=== PATIENT | female | born 1965 | race Caucasian/White ===

== ENCOUNTER → 2017-03-23 | Outpatient (CLI) | payer OTHER | LOC: LAB.O 09:28 | PROVIDERS: ATTEND Nurse Practitioner Family | DX: R73.9 Hyperglycemia, unspecified (principal) ==

== ENCOUNTER → 2017-03-27 | Outpatient (CLI) | payer OTHER ==
--- NOTE | 2017-03-27 11:45 | CT ---
EXAM DESCRIPTION: Chest w/Contrast CLINICAL HISTORY: 51 years, Female, PULMONARY NODULE abnormal chest x-ray COMPARISON: Chest examination March 16, 2017 TECHNIQUE: Thin-section axial CT images are obtained during rapid bolus administration of nonionic IV contrast media. Reconstructed MPR images are created and reviewed as well. This exam was performed according to our departmental dose-optimization program, which includes automated exposure control, adjustment of the mA and/or kV according to patient size and/or use of iterative reconstruction technique. FINDINGS: The lung yeager are clear and no pulmonary nodule is identified anteriorly within either the right or left chest and corresponding to the plain film abnormality. Dense calcification in the left axillary region is noted and presumably represents old granulomatous alden calcification but does not appear to be in the expected location of the nodular density seen on plain film of the chest. The entirety of the soft tissues of the overlying anterior chest wall and breast were not imaged and a dense benign calcification in this location may be present. Minor atelectasis or linear scarring in each lung is evident and unrelated to the nodularity seen on plain film examination. The thoracic inlet and superior mediastinum as well as the middle mediastinum and hilar structures are normal. Marked fatty infiltration of the liver is present. A small normal spleen is present. IMPRESSION: 1. No pulmonary mass in the anterior aspect of either the right or left lung or abnormal calcification is noted within the lung yeager and presumably the nodular density seen radiographically represents a soft tissue calcification that is not clearly identified on current CT examination. 2. Granulomatous calcifications in the left axillary region these do not appear to be properly position to account for the radiographic abnormality. 3. No further follow-up of the chest is noted with only mild atelectatic or scarring changes in each lung evident without worrisome nodularity. No abnormal adenopathy is seen. Electronically signed by: Spenser Reddy MD 03/27/2017 11:43 AM CDT
== END | disposition home or self-care (01) ==
LOC: CT 07:51
PROVIDERS: ATTEND Nurse Practitioner Family
DX: R91.1 Solitary pulmonary nodule (principal)

== ENCOUNTER → 2017-04-03 | Outpatient (CLI) | payer OTHER ==
--- NOTE | 2017-04-04 08:55 | RAD ---
EXAM DESCRIPTION: Hip,Left 2 Views CLINICAL HISTORY: 51 years, Female, HIP PAIN COMPARISON: None. FINDINGS: The superior aspect of the joint spaces completely lost with irregularity of the femoral head and subchondral cystic change and spurring. Suspect that this may be related to chronic impingement syndrome as there is slight deformity of lateral femoral head neck junction. No fracture. IMPRESSION: Deformed femoral head with loss of the superior lateral aspect of the joint space. Spurring and subchondral cystic change. Suspect that this is related to chronic impingement syndrome, but prior trauma is also in differential diagnosis Electronically signed by: Xander Vasquez MD 04/04/2017 8:55 AM CDT
--- NOTE | 2017-04-04 08:56 | RAD ---
EXAM DESCRIPTION: Pelvis CLINICAL HISTORY: 51 years, Female, HIP PAIN COMPARISON: None. FINDINGS: No fracture. Pelvic ring intact. Severe deformity of the left hip with subchondral cystic change and spurring suggests prior trauma or chronic impingement. Right hip shows mild degenerative changes. Mild sacroiliac degenerative degenerative change more on the left. IMPRESSION: No fracture. Severe deformity of the left hip, chronic in appearance. Suspect impingement syndrome or prior trauma Electronically signed by: Xander Vasquez MD 04/04/2017 8:56 AM CDT
== END | disposition home or self-care (01) ==
LOC: RAD 13:05
PROVIDERS: ATTEND Orthopaedic Surgery
DX: M16.12 Unilateral primary osteoarthritis, left hip (principal)

== ENCOUNTER 2017-04-11 05:39 | Inpatient (IN) | payer OTHER ==
--- NOTE | 2017-03-16 11:13 | RAD ---
EXAM DESCRIPTION: Chest,2 Views CLINICAL HISTORY: Preoperative respiratory evaluation. Z01.811 FINDINGS/ IMPRESSION: Normal cardiomediastinal silhouette. Lung volumes are slightly low likely from shallow inspiration. A nodular density projects over the heart in the lateral projection. Well-circumscribed 8 mm nodular density not seen in the frontal projection. Because of overlap not certain if this is calcified or noncalcified. Recommend comparison to any prior radiographs. If none available, chest CT to better characterize and exclude neoplastic nodule The lungs are otherwise clear Electronically signed by: Spenser Neal MD 03/16/2017 11:06 AM CDT
--- NOTE | 2017-04-04 08:57 | HP ---
CHIEF COMPLAINT: Left hip pain. HISTORY OF PRESENT ILLNESS: Gloria is a 51-year-old female with a history of severe hip pain that has been going on and getting progressively worse over the course of the past several years. She has had no direct trauma related to the onset. She denies any radiation of pain and denies any neurologic symptoms. She has severe arthritis. Because of her severe arthritis and ongoing pain, she has requested operative intervention. After discussing the risks, benefits and alternatives to that, the patient has given informed consent for total hip arthroplasty. PAST SURGICAL HISTORY: None. MEDICATIONS: 1. Lisinopril. 2. Gabapentin. 3. Levothyroxine. ALLERGIES: NO KNOWN DRUG ALLERGIES. CODE STATUS: Full code. IMMUNIZATIONS: Up to date. SOCIAL HISTORY: The patient does not drink, smoke or use any illicit drugs. FAMILY HISTORY: None pertinent to today's complaint. REVIEW OF SYSTEMS: Negative except as indicated in the History of Present Illness. PHYSICAL EXAMINATION: VITAL SIGNS: Blood pressure 156/88. Pulse 66. Height 5'8". Weight 268. MENTAL STATUS: The patient is awake, alert, and is able to give a good history and participate in the physical. The patient is oriented to person, place and time. SKIN: Normal tone and turgor. HEENT: Normocephalic, atraumatic. Pupils equal, round and reactive. Mucosal membranes are moist. NECK: Normal range of motion. No thyromegaly, no lymphadenopathy. CHEST: Normal respiratory excursion. CARDIAC: Regular rate and rhythm. No murmurs, rubs or gallops. MUSCULOSKELETAL: The bilateral upper extremities show no evidence of significant pain with range of motion. She maintains full range of motion, 5/5 strength, and intact sensation. There is no crepitus or deformity. The right lower extremity shows full range of motion of the hip and knee without any significant discomfort. Sensation is intact and it is warm and well perfused. Strength is 5/5. The left lower extremity shows severe pain with any attempted range of motion in internal rotation. External rotation is about 10 degrees. She flexes to about 90 degrees at the hip. She has obligate external rotation and walks with a severely antalgic gait. IMAGING: X-rays show severe arthritis of the hip. ASSESSMENT: 1. Osteoarthritis of the hip. PLAN: The plan at this point is for total hip arthroplasty. We have discussed the risks, benefits, and alternatives to that and the patient has given informed consent. [facility][id number] [facility]
[2017-04-11] MEDS ORDERED: VANCOMYCIN HCL INJ 1,000 MG VIAL IVPB ONE ×4 (05:52→19:29)
[2017-04-11] MEDS ORDERED: ceFAZolin SODIUM 1 GM VIAL ONE ×4 (05:52→19:23)
[2017-04-11] MEDS ORDERED: LACTATED RINGERS 1,000 ML ONE ×2 (05:52→06:17)
[2017-04-11] MEDS ORDERED: TRANEXAMIC ACID 1,000 MG/10 ML VIAL ONE ×2 (05:52→05:53)
[2017-04-11] MEDS ORDERED: SODIUM CHL 0.9% 100ML MINI-BAG 200 ML IVPB ONE (05:52)
[2017-04-11] MEDS ORDERED: SODIUM CHLORIDE 0.9% 250ML 250 ML ONE ×3 (05:53→19:29)
[2017-04-11] MEDS ORDERED: MIDAZOLAM INJ 5 MG/5 ML VIAL ONE (06:17)
[2017-04-11] MEDS ORDERED: ROCURONIUM BROMIDE 10 MG/ML VIAL ONE (06:18)
[2017-04-11] MEDS ORDERED: MORPHINE SULF *EPIDURAL* 1 MG/ML VIAL ONE (06:18)
[2017-04-11] MEDS ORDERED: BUPIVACAINE 0.25% W/EPI 50 ML VIAL INJ ONE (06:39)
[2017-04-11] MEDS ORDERED: ZOLPIDEM TARTRATE 5 MG TAB PO PRN (07:31)
[2017-04-11] MEDS ORDERED: ACETAMINOPHEN 325 MG TAB PO PRN (07:31)
[2017-04-11] MEDS ORDERED: PROMETHAZINE HCL INJ 12.5 MG in SODIUM CHLORIDE 0.9% 50ML 50 ML IVPB PRN (07:31)
[2017-04-11] MEDS ORDERED: ACETAMINOPHEN 500 MG TAB PO PRN (07:31)
[2017-04-11] MEDS ORDERED: ONDANSETRON INJ 4 MG/2 ML VIAL IV PRN (07:31)
[2017-04-11] MEDS ORDERED: HYDROcodone 5MG/APAP 325MG 1 EA TAB PO PRN (07:31)
[2017-04-11] MEDS ORDERED: MAGNESIUM HYDROXIDE 30 ML UD PO PRN (07:31)
[2017-04-11] MEDS ORDERED: NALOXONE HCL INJ 0.4 MG/ML VIAL IV PRN (07:31)
[2017-04-11] MEDS ORDERED: ALUMINUM & MAGNESIUM HYDROXIDE 30 ML UD PO PRN (07:31)
[2017-04-11] MEDS ORDERED: DEX 5% W/NACL 0.45% 1000ML 1,000 ML IVS PRN (07:31)
[2017-04-11] MEDS ORDERED: MORPHINE SULFATE INJ 10 MG/ML VIAL IM PRN (07:31)
[2017-04-11] MEDS ORDERED: MORPHINE SULFATE INJ 10 MG/ML VIAL IV PRN (07:31)
[2017-04-11] MEDS ORDERED: SODIUM CHLORIDE 0.9% (FLUSH) 10 ML SYG IV PRN (07:31)
[2017-04-11] MEDS ORDERED: BENZOCAINE-MENTH LOZ (CEPACOL) 1 EA LOZ MT PRN (07:31)
[2017-04-11] MEDS ORDERED: TEMAZEPAM 15 MG CAP PO PRN (07:31)
[2017-04-11] MEDS ORDERED: TRANEXAMIC ACID INJ 1,000 MG in SODIUM CHLORIDE 0.9% 100ML 100 ML IVPB ONE (07:31)
[2017-04-11] MEDS ORDERED: BISACODYL SUPPOSITORY 10 MG PR PRN (07:31)
[2017-04-11] MEDS ORDERED: PROMETHAZINE HCL INJ 25 MG in SODIUM CHLORIDE 0.9% 50ML 50 ML IVPB PRN (07:31)
[2017-04-11] MEDS ORDERED: MORPHINE PCA 1 MG/ML 100 ML BAG IVPB ONE (09:47)
[2017-04-11] MEDS: MORPHINE PCA 1 MG/ML 100ML 1 BAG in PREMIX BAG 1 BAG IVPB SCH (10:30)
[2017-04-11] MEDS: IV SET AND CAP CHANGE INJ INJ SCH (11:30)
[2017-04-11] MEDS ORDERED: NEOSTIGMINE METHYLSULFATE 1 MG/ML ML IV ONE (12:00)
[2017-04-11] MEDS ORDERED: LIDOCAINE 1% 10 ML VIAL INJ ONE (12:00)
[2017-04-11] MEDS ORDERED: PROPOFOL 200 MG/20 ML VIAL IV ONE (12:00)
[2017-04-11] MEDS ORDERED: ATROPINE SULFATE 0.4 MG/ML 1ML VIAL IV ONE (12:00)
--- NOTE | 2017-04-11 13:12 | RAD ---
EXAM DESCRIPTION: Pelvis CLINICAL HISTORY: 51 years Female, postop left hip replacement COMPARISON: None. FINDINGS: Three portable views of the pelvis/left hip show bipolar hip prosthesis in excellent position. No complicating postop process is observed. IMPRESSION: Postop-no complication observed Electronically signed by: Dejon Hargrove MD 04/11/2017 1:12 PM CDT
--- NOTE | 2017-04-11 13:31 | RAD ---
Procedure: XR HIP 2 OR MORE VIEWS Exam Date: 04/11/2017 7:34 AM CDT Ordering Provider: JACK LINTON MD Clinical Indication: post op Comparison: None FINDINGS: Status post left total hip arthroplasty without evidence of complication. No periprosthetic fracture or dislocation. No soft tissue abnormality. Impression: 1. Post recent left KARINA without complication. Electronically signed by: Franklyn Rosenthal MD 04/11/2017 1:31 PM CDT
[2017-04-11] MEDS: SODIUM CHLORIDE 0.45% 1000ML 1,000 ML IVS PRN (13:44)
[2017-04-11] MEDS: HYDROcodone 10MG/APAP 325MG 1 EA TAB PO PRN ×2 (14:04→22:12)
[2017-04-11] MEDS: MAGNESIUM OXIDE 400 MG TAB PO SCH (15:57)
[2017-04-11] MEDS ORDERED: SODIUM CHLORIDE 0.9% 100ML 100 ML IVPB ONE ×2 (16:28→19:23)
[2017-04-11] MEDS: ceFAZolin SODIUM 2 GM in SODIUM CHLORIDE 0.9% 100ML 100 ML IVPB SCH ×2 (16:32→23:33)
[2017-04-11] MEDS: VANCOMYCIN HCL INJ 1,000 MG in SODIUM CHLORIDE 0.9% 250ML 250 ML IVPB SCH (18:15)
[2017-04-11] MEDS ORDERED: DEXTROSE 50% 25 GM/50 ML SYG IV PRN (18:20)
[2017-04-11] MEDS ORDERED: GLUCAGON INJ 1 MG VIAL SUBCU PRN (18:20)
[2017-04-11] MEDS ORDERED: NICOTINE PATCH 21 MG TD SCH (18:30)
--- NOTE | 2017-04-11 19:17 | CONS ---
DATE OF CONSULTATION: 04/11/17 SUPERVISING PHYSICIAN: Spenser Franco M.D. CHIEF COMPLAINT: Left hip pain. HISTORY OF PRESENT ILLNESS: This is a 51 year-old female patient who was admitted this morning for left hip replacement. She has a 4+ year history of severe hip pain and it has progressively worsened. She has had no trauma to that leg but because of the severity of her arthritis and ongoing pain, she requested operative intervention per Dr. Kb Mercer, orthopedic surgeon. Her surgery was completed this morning and I am seeing her in the postoperative phase. She progressed through her surgery without any complications. Earlier today after being admitted to the floor, she did have some pain issues but after giving her some morphine and starting her on her [place], her pain is much better controlled at this point. PAST MEDICAL HISTORY: 1. Hypertension. 2. Left hip pain. 3. Hypothyroidism. 4. Diabetes mellitus type 2. 5. Gastroesophageal reflux disease. 6. Diabetic neuropathy to the lower extremities. PAST SURGICAL HISTORY: 1. Hysterectomy. 2. Umbilical hernia repair. OUTPATIENT MEDICATIONS: Per the EMR and awaiting verification. ALLERGIES: NO KNOWN DRUG ALLERGIES. FAMILY HISTORY: SOCIAL HISTORY: She is not . She works at [employer] in [place]. She has 3 children. She smokes about 1/2 to 3/4 pack of cigarettes per day. She denies any ETOH or illicit drug use. REVIEW OF SYSTEMS: Negative except as per the History of Present Illness. PHYSICAL EXAMINATION: VITAL SIGNS: She is afebrile, heart rate 80, blood pressure 127/81, respiratory rate 16, O2 sat is 96%. GENERAL: This is a 51 year-old female patient who is lying in her hospital bed. She is in no acute distress. HEENT: Normocephalic and atraumatic. Pupils are equal and reactive. Oropharynx is clear. NECK: Supple without mass. CHEST: Essentially clear to auscultation bilaterally. HEART: Regular rate and rhythm. ABDOMEN: Soft, nondistended, non-tender. Bowel sounds are positive. EXTREMITIES: No cyanosis, clubbing or edema. Pedal pulses are palpable at +2 bilaterally. The dressing to her left lateral hip is dry and intact. NEUROLOGIC: She is awake, alert and oriented times three. LABORATORY AND RADIOLOGY: There are no labs or films to report today, except for her postsurgical radiology reports and they are as per the EMR. ASSESSMENT: 1. Left hip replacement postoperative day zero as per surgical intervention per Dr. Kb Mercer, orthopedic surgeon. 2. Osteoarthritis. 3. Hypertension. 4. Diabetes mellitus type 2. 5. Hypothyroidism. 6. Gastroesophageal reflux disease. 7. Chronic tobacco abuse. PLAN: We will continue present supportive care. Will leave orthopedic issues per Dr. Mercer. She will begin her physical therapy tomorrow for strengthening and conditioning. I have added a nicotine patch as well as started sliding scale insulin with Accu Cheks a.c. and h.s. We will continue to monitor her closely and followup as needed. Dr. Franco is the collaborating physician and available for consultation. #[id number] [facility]
[2017-04-11] MEDS ORDERED: diphenhydrAMINE HCL 25 MG CAP PO ONE (19:20)
[2017-04-11] MEDS ORDERED: ENOXAPARIN SODIUM 30 MG/0.3 ML SYG SUBCU ONE (19:29)
[2017-04-11] MEDS ORDERED: DOCUSATE CALCIUM 240 MG CAP ONE (19:29)
[2017-04-11] MEDS: DOCUSATE CALCIUM 240 MG CAP PO SCH (20:13)
[2017-04-11] MEDS: GABAPENTIN 300 MG CAP PO SCH (20:13)
[2017-04-11] MEDS: INSULIN LISPRO 100 UNITS/ML PEN SUBCU SCH (20:50)
[2017-04-11] MEDS: ENOXAPARIN SODIUM 30 MG/0.3 ML SYG SUBCU SCH (22:12)
[2017-04-11] MEDS: CYCLOBENZAPRINE HCL 10 MG TAB PO PRN (22:12)
[2017-04-12] MEDS: VANCOMYCIN HCL INJ 1,000 MG in SODIUM CHLORIDE 0.9% 250ML 250 ML IVPB SCH (06:15)
[2017-04-12] MEDS: LEVOTHYROXINE SODIUM 0.112 MG TAB PO SCH (06:15)
[2017-04-12] MEDS ORDERED: SODIUM CHLORIDE 0.9% 100ML 100 ML IVPB ONE (07:44)
[2017-04-12] MEDS ORDERED: ceFAZolin SODIUM 1 GM VIAL ONE (07:44)
[2017-04-12] MEDS ORDERED: LISINOPRIL 10 MG TAB ONE (07:47)
[2017-04-12] MEDS ORDERED: metFORMIN XR 500 MG TAB.ER.24 PO ONE (07:47)
--- NOTE | 2017-04-12 08:12 | PN ---
DATE: 04/11/17 POSTOPERATIVE CHECK SUBJECTIVE: Ms. Richter is doing well. Her pain seems to be pretty well controlled , especially for not being able to have a spinal. OBJECTIVE: Afebrile. Vital signs stable. Dressing is clean, dry and intact. ASSESSMENT: Status post total hip arthroplasty. PLAN: The plan at this point is for her to begin partial weight-bearing on postoperative day 1. #[id number] [facility]TDD
[2017-04-12] MEDS: ceFAZolin SODIUM 2 GM in SODIUM CHLORIDE 0.9% 100ML 100 ML IVPB SCH (08:30)
--- NOTE | 2017-04-12 08:33 | OP ---
DATE OF PROCEDURE: 04/11/17 PREOPERATIVE DIAGNOSIS: 1. Left hip osteoarthritis. POSTOPERATIVE DIAGNOSIS: 1. Left hip osteoarthritis. PROCEDURE: 1. Left total hip arthroplasty. SURGEON: Kb Mercer MD. HANGAR ATTENDANT: James Garcia CST, SA-Jadiel. ANESTHESIA: General. COMPLICATIONS: None. FINDINGS: Severe osteoarthritis of the hip. INDICATION: Ms. Richter has a long history of worsening hip pain. She has tried conservative measures, however, has failed to gain relief. Because of her failure of relief, she has requested operative intervention. After discussing the risks, benefits and alternatives to that, the patient has given informed consent for total hip arthroplasty. PROCEDURE: The patient was brought to the Operating Room and placed in supine position. General anesthesia was induced and the patient was transitioned into the lateral decubitus position. The leg and hemipelvis were then sterilely prepped and draped. Following prepping and draping, an incision was made directly overlying the greater trochanter, carrying both proximally and distally. Dissection was carried down to the iliotibial band, which was split along the course of its fibers. The abductor musculature was identified. The anterior one-third of the abductor musculature was elevated off of the greater trochanter and a capsulotomy was performed. The hip was dislocated. The primary femoral neck cut was made and the acetabulum was identified. All of the labrum and tissue within the acetabulum was removed and sequential reaming was undertaken. A size 51 reamer was used as the final size and a bleeding bony bed was achieved. A size 52 trial was impacted into place and found to be stable. Following impaction of that and testing of stability, the wound was irrigated and bone graft which was harvested from the femoral head was placed in the acetabulum. The final component was impacted into place and fixation was augmented with 3 screws. The liner was placed. The hip was dislocated and the femoral canal was identified. Using sequential reaming and broaching, a size 9 was found to fit and a size 9 broach was left in place for trialing. Following placement of the broach with the trial head, the hip was reduced. It was taken through a range of motion and found to be stable without impingement or pending dislocation. The hip was dislocated, the trial was removed, and the final component was impacted into place. A head was placed and the hip reduced. It was taken through a range of motion without any evidence of dislocation or impingement. Leg lengths appeared to be equal. The wound was very thoroughly irrigated and the abductor musculature was reapplied to the anatomic position on the greater trochanter. The iliotibial band was closed and the skin and subcutaneous tissues were closed with a combination of running and interrupted Sterile dressings were placed. The patient was awoken from anesthesia and taken to Recovery. POSTOPERATIVE INSTRUCTIONS: The patient will begin partial weightbearing on postoperative day 1. COMPONENTS: [place] Secur-Fit stem size 9, Tritanium hemispherical cup size 52 , and 36 mm head. [facility][id number] [facility]
[2017-04-12] MEDS: GABAPENTIN 300 MG CAP PO SCH ×3 (09:00→20:58)
[2017-04-12] MEDS: metFORMIN XR 500 MG TAB.ER.24 PO SCH (09:00)
[2017-04-12] MEDS: LISINOPRIL 10 MG TAB PO SCH (09:00)
[2017-04-12] MEDS: MAGNESIUM OXIDE 400 MG TAB PO SCH (09:00)
[2017-04-12] MEDS: HYDROcodone 10MG/APAP 325MG 1 EA TAB PO PRN ×2 (09:06→14:42)
[2017-04-12] MEDS: INSULIN LISPRO 100 UNITS/ML PEN SUBCU SCH ×4 (09:31→21:24)
[2017-04-12] MEDS: ENOXAPARIN SODIUM 30 MG/0.3 ML SYG SUBCU SCH ×2 (10:00→22:22)
[2017-04-12] MEDS ORDERED: diphenhydrAMINE HCL 25 MG CAP PO ONE ×2 (11:05→23:24)
--- NOTE | 2017-04-12 15:22 | PN ---
DATE: 04/12/17 SUBJECTIVE: She is doing very well. She is sitting up to the side of the bed. She is comfortable without significant pain. OBJECTIVE: She is afebrile. Vital signs are stable. Dressing is clean, dry and intact. ASSESSMENT: 1. Status post total hip arthroplasty. PLAN: The plan is to continue on with physical therapy and will discharge her once she meets all therapy goals. #[id number] [facility]
[2017-04-12] MEDS ORDERED: MORPHINE PCA 1 MG/ML 100 ML BAG IVPB ONE (16:39)
[2017-04-12] MEDS: MORPHINE PCA 1 MG/ML 100ML 1 BAG in PREMIX BAG 1 BAG IVPB SCH (16:44)
--- NOTE | 2017-04-12 18:43 | PN ---
DATE: 04/12/17 SUPERVISING PHYSICIAN: Spenser Franco M.D. SUBJECTIVE: The patient is lying in her hospital bed. She is eating her meal. She has no complaints of shortness of breath, nausea, vomiting, diarrhea or chest pain. Actually says she feels very well and has walked several times to the door today. OBJECTIVE: VITAL SIGNS: She is afebrile, heart rate 66, blood pressure 97/59, respiratory rate 20, O2 sat is 93% on room air. GENERAL: This is a 51 year-old obese female who is lying in her hospital bed in no acute distress. RESPIRATORY : Essentially clear to auscultation bilaterally. CARDIAC: Regular rate and rhythm. ABDOMEN: Soft, nondistended, non-tender. Bowel sounds are positive. EXTREMITIES: No cyanosis, clubbing or edema. Her pedal pulses are palpable +2 bilaterally. Dressing to her lateral left hip is dry and intact. NEUROLOGIC: She is awake, alert and oriented times three. LABORATORY: Hemoglobin 12.2, hematocrit 37.8. Blood sugars have been running between 148 and 176. All other labs and films have been reviewed via the EMR. ASSESSMENT: 1. Left hip replacement as per Dr. Mercer, orthopedic surgeon, postoperative day number 1. 2. Osteoarthritis. 3. Hypertension. 4. Diabetes mellitus type 2. 5. Hypothyroidism. 6. Gastroesophageal reflux disease. 7. Chronic tobacco abuse. PLAN: We will continue present supportive care. I have encouraged the patient to stop smoking. We will continue with good pulmonary hygiene. Her orthopedic issues will be per Dr. Kb Mercer, orthopedic surgeon. Strengthening and conditioning will be per Physical Therapy. Hopefully she will be able to be discharged within the next several days. Otherwise we will continue to monitor the patient closely and followups a needed. Dr. Franco is the collaborating physician available for consultation. #[id number] [facility]
[2017-04-12] MEDS: SODIUM CHLORIDE 0.45% 1000ML 1,000 ML IVS PRN (20:58)
[2017-04-12] MEDS: NICOTINE PATCH 21 MG TD SCH (20:58)
[2017-04-12] MEDS: DOCUSATE CALCIUM 240 MG CAP PO SCH (20:58)
[2017-04-13] MEDS: LEVOTHYROXINE SODIUM 0.112 MG TAB PO SCH (06:37)
[2017-04-13] MEDS: INSULIN LISPRO 100 UNITS/ML PEN SUBCU SCH ×4 (08:38→21:45)
[2017-04-13] MEDS: MAGNESIUM OXIDE 400 MG TAB PO SCH (08:39)
[2017-04-13] MEDS: metFORMIN XR 500 MG TAB.ER.24 PO SCH (08:39)
[2017-04-13] MEDS: HYDROcodone 10MG/APAP 325MG 1 EA TAB PO PRN ×3 (08:39→20:54)
[2017-04-13] MEDS: GABAPENTIN 300 MG CAP PO SCH ×3 (08:39→20:20)
[2017-04-13] MEDS: LISINOPRIL 10 MG TAB PO SCH ×2 (08:39→10:38)
--- NOTE | 2017-04-13 09:05 | PN ---
DATE: 04/13/17 SUBJECTIVE: She is doing really well and is not having any pain. She was up several times yesterday out of bed. OBJECTIVE: Afebrile. Vital signs stable. Wound is clean. There are no signs or symptoms of infection. ASSESSMENT: Status post total hip arthroplasty. PLAN: The plan at this point is for her to continue with therapy. She may be able to be discharged today pending the therapy she is able to participate in. #[id number] [facility]
[2017-04-13] MEDS: SODIUM CHLORIDE 0.9% (FLUSH) 10 ML SYG IV SCH ×2 (10:38→20:20)
[2017-04-13] MEDS: ENOXAPARIN SODIUM 30 MG/0.3 ML SYG SUBCU SCH ×2 (11:21→21:46)
[2017-04-13] MEDS ORDERED: ALBUTEROL SULFATE 2.5 MG/3 ML VIAL NEB PRN (11:51)
[2017-04-13] MEDS: guaiFENesin ER TAB 600 MG TAB PO SCH ×2 (13:00→20:21)
[2017-04-13] MEDS: IPRATROPIUM/ALBUTEROL 3 ML VIAL NEB SCH ×3 (13:45→20:25)
--- NOTE | 2017-04-13 15:30 | RAD ---
EXAM DESCRIPTION: Chest,2 Views CLINICAL HISTORY: congestion COMPARISON: March 16, 2017 FINDINGS: Two-view chest x-ray shows cardiomediastinal silhouette and pulmonary vasculature to be within normal limits. The lungs are normally aerated and clear. Calcified pulmonary nodule projecting over the cardiac silhouette on lateral projection is stable from previous. This is not well seen on the PA projection. Costophrenic angles are sharp. Mild spondylitic changes of the thoracic spine are seen. IMPRESSION: No radiographic evidence of acute cardiopulmonary disease. Electronically signed by: Boone Stevens MD 04/13/2017 3:30 PM CDT
[2017-04-13] MEDS: DOCUSATE CALCIUM 240 MG CAP PO SCH (20:20)
[2017-04-13] MEDS: NICOTINE PATCH 21 MG TD SCH (20:21)
[2017-04-13] MEDS: CYCLOBENZAPRINE HCL 10 MG TAB PO PRN (20:53)
[2017-04-14] MEDS: LEVOTHYROXINE SODIUM 0.112 MG TAB PO SCH (06:04)
[2017-04-14] MEDS: INSULIN LISPRO 100 UNITS/ML PEN SUBCU SCH ×2 (08:01→12:21)
[2017-04-14] MEDS: IV SET AND CAP CHANGE INJ INJ SCH (08:03)
--- NOTE | 2017-04-14 08:26 | PN ---
DATE: 04/13/17 SUPERVISING PHYSICIAN: Ismael Josue MD SUBJECTIVE: The patient is walking in her room using her walker. She has just finished her shower. She has no complaints of shortness of breath, nausea, vomiting, diarrhea or chest pain. OBJECTIVE: VITAL SIGNS: Temperature is 101.5, pulse rate 74, blood pressure 97/63, respiratory rate 24, O2 sat is 96%. RESPIRATORY: Essentially clear to auscultation although there are a few scattered rhonchi in the apices. CARDIAC: Regular rate and rhythm. ABDOMEN: Soft, nondistended, non-tender. Bowel sounds are positive. EXTREMITIES: Her pedal pulses are palpable at +2 bilaterally. Dressing to her lateral left hip is dry and intact. NEUROLOGIC: She is awake, alert and oriented times three. LABORATORY: Her blood sugars have run between 125 and 208. All other labs and films have been reviewed via the EMR. ASSESSMENT: 1. Left hip replacement per Dr. Mercer, orthopedic surgeon, postoperative day number 2. 2. Osteoarthritis. 3. Hypertension. 4. Diabetes mellitus type 2. 5. Hypothyroidism. 6. Gastroesophageal reflux disease. 7. Chronic tobacco abuse. PLAN: We will continue present supportive care. Again, I have encouraged her to stop smoking. At this oint, her temperature is up some and she is strongly encouraged to continue her pulmonary hygiene as well as walking in the hallways. I will defer the orthopedic issues for Dr. Mercer. She is continuing her physical therapy for strengthening and conditioning. I believe if she continues to progress as she is, she will be able to be discharged tomorrow or Monday. She will have outpatient physical therapy at [facility]. We will continue to monitor patient closely and follow as needed. #[id number] [facility]
[2017-04-14] MEDS: HYDROcodone 10MG/APAP 325MG 1 EA TAB PO PRN (08:31)
[2017-04-14] MEDS: IPRATROPIUM/ALBUTEROL 3 ML VIAL NEB SCH ×2 (08:37→12:32)
[2017-04-14] MEDS: GABAPENTIN 300 MG CAP PO SCH (09:28)
[2017-04-14] MEDS: metFORMIN XR 500 MG TAB.ER.24 PO SCH (09:28)
[2017-04-14] MEDS: guaiFENesin ER TAB 600 MG TAB PO SCH (09:29)
[2017-04-14] MEDS: SODIUM CHLORIDE 0.9% (FLUSH) 10 ML SYG IV SCH (09:29)
[2017-04-14] MEDS: MAGNESIUM OXIDE 400 MG TAB PO SCH (09:29)
[2017-04-14] MEDS: LISINOPRIL 10 MG TAB PO SCH (09:29)
[2017-04-14] MEDS ORDERED: RIVAROXABAN 10 MG TAB PO SCH (10:30)
[2017-04-14 14:00] VITALS: O2SAT 96
[2017-04-14 15:42] VITALS: BP 110/78; TEMP 98.2
[2017-04-14] MEDS ORDERED: MAGNESIUM HYDROXIDE 30 ML UD PO ONE (21:00)
[2017-04-14] MEDS ORDERED: BISACODYL SUPPOSITORY 10 MG PR ONE (21:00)
--- NOTE | 2017-04-15 12:11 | DS ---
SUPERVISING PHYSICIAN: Ismael Josue M.D. DISCHARGE DIAGNOSIS: 1. Left hip replacement per Dr. Mercer, orthopedic surgeon, postoperative day number 3. 2. Osteoarthritis. 3. Hypertension. 4. Diabetes mellitus type 2. 5. Hypothyroidism. 6. Gastroesophageal reflux disease. 7. Chronic tobacco abuse. HISTORY OF PRESENT ILLNESS: This is a 51 year-old female patient who was admitted to the hospital for a left hip replacement per Dr. Kb Mercer, orthopedic surgeon. She has a 4+ history of severe hip pain and it had progressively worsened. She tried conservative measures and her pain had not improved so she requested operative intervention per Dr. Kb Mercer, orthopedic surgeon. HOSPITAL COURSE: Her intraocular procedure went without complications as well as her postoperative treatment. Her physical therapy progressed on schedule. She did run a temperature of 100.8 on day 2, but she was instructed to complete her aggressive pulmonary hygiene and that improved. Her labs were stable. She is stable and will be discharged home today. DISCHARGE PLAN: The patient will be discharged home in stable condition. She has received her walker as well as a prescription for Flexeril and her Xarelto as well as her pain medications. She is to complete outpatient physical therapy at [facility]. She will have a followup appointment with Dr. Mercer within the next 2 to 3 weeks. She is to return to Dr. Mercer's clinic or to followup at the hospital for any complications or problems. She is to resume her previous diabetic diet as well as her previous home medications. DISCHARGE MEDICATIONS: 1. Lisinopril. 2. Levothyroxine. 3. Gabapentin. 4. Prilosec. 5. Metformin. 6. Naprosyn to be resumed after completion of her Xarelto. 7. Cyclobenzaprine. 8. Hydrocodone. 9. Xarelto. Dr. Josue is the collaborating physician available for consultation. #[id number] and [id number] [facility]
== END 2017-04-14 15:30 | disposition home or self-care (01) | DRG 470 ==
LOC: CANPRESDC → AMB 05:39 → MS 11:10
PROVIDERS: ADMIT Orthopaedic Surgery; ATTEND Orthopaedic Surgery
PROC: 0SRB02A Replacement of Left Hip Joint with Metal on Polyethylene Synthetic Substitute, Uncemented, Open Approach (ICD-10-PCS; principal; 2017-04-11 07:00)
DX: M16.12 Unilateral primary osteoarthritis, left hip (principal); I10 Essential (primary) hypertension; E03.9 Hypothyroidism, unspecified; K21.9 Gastro-esophageal reflux disease without esophagitis; F17.210 Nicotine dependence, cigarettes, uncomplicated; E11.42 Type 2 diabetes mellitus with diabetic polyneuropathy; Z79.899 Other long term (current) drug therapy